=== PATIENT | female | born 1960 | race Caucasian/White ===

== ENCOUNTER 2018-11-10 13:40 | Emergency (ER) | payer MEDICARE, OTHER ==
[~2018-11-10] VITALS: Ht 154.9 cm; Wt 77.3 kg
[~2018-11-10 13:40] MED LIST: AMLO-147 PO; ASPI81TA52 PO; CEPH500C PO; CPR3OO3.5 LEFT EYE; FESO4TAB PO; HYDR-3498 PO; HYDR-3980 PO; IBUP-1542 PO; MELO7.5T38 PO; METH500T8 PO; NALO4SPR NS; OMEP20CA16 PO; TRAM50TA2 PO; TYL500 PO
[2018-11-10 13:45] VITALS: Ht 154.9 cm; Wt 77.3 kg
[2018-11-10] MEDS ORDERED: ONDANSETRON (ODT) 4 MG TAB ODT STA (13:49)
[2018-11-10] MEDS ORDERED: HYDROCODONE/APAP (10/325) TAB PO ONE (14:00)
[2018-11-10 15:13] VITALS: BP 111/66; PULSE 69; RESP 16
== END 2018-11-10 15:26 | disposition home or self-care (01) ==
LOC: E/R 13:40
DX: S82.045A Nondisplaced comminuted fracture of left patella, initial encounter for closed fracture (principal); E03.9 Hypothyroidism, unspecified; W01.198A Fall on same level from slipping, tripping and stumbling with subsequent striking against other object, initial encounter; Y92.9 Unspecified place or not applicable; Z79.82 Long term (current) use of aspirin
CPT/HCPCS: 73562